=== PATIENT | female | born 1995 | race Caucasian/White ===

== ENCOUNTER 2021-02-26 06:42 | Day surgery (SDC) | payer OTHER ==
[~2021-02-26] VITALS: Ht 167.6 cm; Wt 104.5 kg
[~2021-02-26 06:42] MED LIST: HYDROmorphone 2 MG/ML VIAL IVP PRN; IV RINGERS,LACTATED 1000ML 1,000 ML IV SCH; MORPHINE SULFATE 2 MG/ML INJ. IVP PRN; NAPR-695 PO; PREN1TAB86 PO; PROCHLORPERAZINE 10 MG/2 ML VIAL. IVP PRN; fentaNYL PF VIAL 100 MCG/2 ML VIAL IVP PRN
[2021-02-26 06:56] VITALS: BP 126/77
[2021-02-26] MEDS ORDERED: LIDOCAINE 1% PF 5 ML VIAL. ONE (07:09)
[2021-02-26] MEDS ORDERED: PROPOFOL 10 MG/ML (20ML) VIAL. IV ONE (07:09)
[2021-02-26] MEDS ORDERED: DEXAMETHASONE SOD PHOS 4 MG/ML VIAL ONE (07:09)
[2021-02-26] MEDS ORDERED: ONDANSETRON PF 4 MG/2 ML VIAL. ONE (07:10)
[2021-02-26] MEDS ORDERED: fentaNYL PF VIAL 100 MCG/2 ML VIAL ONE (07:11)
[2021-02-26] MEDS ORDERED: FERRIC SUBSULFATE 8 ML SOL.W.APPL TP ONE (07:24)
[2021-02-26] MEDS ORDERED: LIDOCAINE 1%/EPI 1:100,000 20 ML VIAL. INJ ONE (07:45)
[2021-02-26] MEDS ORDERED: KETOROLAC 30 MG/ML VIAL. ONE (08:32)
[2021-02-26] MEDS ORDERED: SEVOFLURANE 31 TO 60 MINUTES. IH ONE (08:32)
--- NOTE | 2021-02-26 08:59 | PDOC ---
BRIEF OPERATIVE NOTE Date: Feb 26, 2021 Pre-Op Diagnosis EULA 3 Post-Op Diagnosis Same Procedure Performed Cervical Cone Biopsy Surgeon Dr. Galvez Anesthesia Type: General Blood Loss 5 ml Specimens Obtained cervical cone biopsy of anterior and posterior lip of cervix Findings EULA 3 Complications none Operative Note see dictation NATHALY GALVEZ Jr, MD Feb 26, 2021 08:59
--- NOTE | 2021-02-26 09:02 | DISCH ---
DISCHARGE INSTRUCTIONS Condition on Discharge Condition on Discharge: Stable Activity After Discharge Activity Instructions for Disc: Activity as tolerated Lifting Instructions after Dis: No heavy lifting Driving Instructions after Dis: Do not drive today Diet after Discharge Diet after Discharge: Regular Contacting the DRWally after DC Call your doctor for: Concerns you may have Follow-Up Follow up with: Dr. Galvez in 2 weeks. Rx Motrin 800mg TID for pain. NATHALY GALVEZ Jr, MD Feb 26, 2021 09:02
--- NOTE | 2021-02-26 09:17 | OP ---
DATE OF SURGERY: 02/26/2021 PREOPERATIVE DIAGNOSIS: Cervical intraepithelial neoplasia 3. POSTOPERATIVE DIAGNOSIS: Cervical intraepithelial neoplasia 3. PROCEDURE: Cervical cone biopsy via Cold Knife Cone Biopsy SURGEON: Mahesh Galvez MD. TYPE OF ANESTHESIA: GETA. ESTIMATED BLOOD LOSS: 5 mL. COMPLICATIONS: None. FINDINGS: EULA 3. SUMMARY: A 25-year-old with EULA 3 on colposcopic biopsy requiring cervical cone biopsy. She was counseled on the risks, benefits and expectations and voiced clear understanding to proceed. DESCRIPTION OF PROCEDURE: The patient was taken to surgery suite and placed in dorsal lithotomy position, was prepped with Betadine solution and draped in a sterile fashion. After adequate anesthesia, weighted speculum and curved [place] placed vaginally. The anterior lip of the cervix grasped with single tooth tenaculum. 1% lidocaine with epinephrine was injected in a circumferential manner, 2-0 Vicryl sutures were placed at the 3 o'clock and 9 o'clock position to help stabilize the cervix. A 45-degree angle scalpel was utilized to remove the anterior and posterior lip of the cervix. The remaining cervix was cauterized with the Bovie tipped cautery. Monsel solution was also placed for hemostasis. The single tooth tenaculum was removed. Weighted speculum was removed. The patient tolerated the procedure well and was taken to recovery room in stable condition. Sponge and needle counts correct x 3. XI DR: Theodore TID: [id number] [facility]ALS[facility]
[2021-02-26 09:25] VITALS: BP 118/80
[2021-02-26] MEDS ORDERED: SEVOFLURANE 16 TO 30 MINUTES. IH ONE (09:57)
--- NOTE | 2021-02-27 17:07 | PATHOLOGY ---
[facility] Accession Number: [id number] . 01 Material submitted: . cervix - CERVICAL CONE BIOPSY SUTURE AT 12:00 . 02 Diagnosis: Uterine cervix, cervical cone biopsy: - Severe dysplasia/carcinoma in situ (EULA III), with focal superficial endocervical glandular extension, primarily involving the 9-12:00 and 12-3:00 quadrants. - Endocervical, exocervical, and deep margins negative for EULA III. - Chronic cervicitis with focal squamous metaplasia. - Nabothian cysts, small, multiple. LBQ 02/27/2021 1647 Local . 02 Comment: There are focally prominent areas of severe dysplasia/carcinoma in situ with focal superficial endocervical glandular extension, involving the 9-12:00 and 12-3:00 quadrants. The margins are negative for EULA III. There is no evidence of invasive squamous cell carcinoma. (JPM/db; 02/27/2021) . 02 Electronically signed: . Escobar Valverde MD, Pathologist NPI- [id number] . 01 Gross description: . The specimen is received in formalin, labeled "Jenna Middleton, cervical cone biopsy, suture at 12:00". Received is an intact oriented LEEP specimen measuring 2.6 x 2.6 x 1.8 cm in greatest dimensions with a suture designating the 12:00 aspect. The 1.3 cm cervical os is surrounded by pale mckinney, smooth ectocervical mucosa. The endocervical margin is inked blue and the remaining margin is inked black. The specimen is radially sectioned and entirely submitted as follows: . A1-A3 12:00 to 3:00 margin A4-A6 3:00 to 6:00 margin A7-A10 6:00 to 9:00 margin A11-A13 9:00 to 12:00 margin . ([facility]; 02/26/2021) NRI/NRI 02/26/2021 1645 Local . 02 Pathologist provided ICD-10: D06.9, N72, N88.8 . 02 CPT . 532738 Specimen Comment: A courtesy copy of this report has been sent to [phone] Specimen Comment: Report sent to Specimen Comment: A duplicate report has been generated due to demographic updates. Performed at: 01 [facility] [address] [facility] [address] [place], [place] [id number] MD Chaparro Maddox MD Phone: [phone] Performed at: 02 [facility] [address] [place], [place] [id number] MD Escobar Valverde MD Phone: [phone]
== END 2021-02-26 09:40 | disposition home or self-care (01) ==
LOC: SURG 06:42
PROVIDERS: ATTEND Obstetrics & Gynecology
DX: D06.7 Carcinoma in situ of other parts of cervix (principal); Z79.899 Other long term (current) drug therapy; Z98.890 Other specified postprocedural states
CPT/HCPCS: 57520; 81025; 88307; A4930; J0690; J1100; J1885; J2405; J2704; J3010; J3490